=== PATIENT | female | born 1980 | race Two or more races ===

== ENCOUNTER 2018-05-21 10:20 | Emergency (ER) | payer OTHER ==
[~2018-05-21] VITALS: Ht 160 cm; Wt 135.0 kg
[~2018-05-21 10:20] MED LIST: ACET325T14 PO; AMOX-291 PO; AMOX-367 PO; AZIT250T PO; OMEP-110 PO; PREN1TAB28 PO; RANI150T23 PO
[2018-05-21 10:22] VITALS: BP 124/83
[2018-05-21] MEDS ORDERED: DIPHENHYDRAMINE 25 MG CAPSULE ONE (10:46)
[2018-05-21] MEDS ORDERED: DIPHENHYDRAMINE 25 MG CAPSULE PO ONE (11:00)
== END 2018-05-21 11:39 | disposition home or self-care (01) ==
LOC: ED 11:01
DX: J45.909 Unspecified asthma, uncomplicated (principal); F31.9 Bipolar disorder, unspecified; R09.89 Other specified symptoms and signs involving the circulatory and respiratory systems
CPT/HCPCS: 99283; J7512

== ENCOUNTER 2018-08-04 17:13 | Emergency (ER) | payer OTHER ==
[~2018-08-04] VITALS: Ht 160 cm; Wt 65.3 kg
[2018-08-04 17:16] VITALS: BP 103/53
== END 2018-08-04 19:57 | disposition left against medical advice (07) ==
LOC: ED 19:51
DX: H66.90 Otitis media, unspecified, unspecified ear (principal)
CPT/HCPCS: 99281